=== PATIENT | male | born 1955 | race Caucasian/White ===

== ENCOUNTER 2023-07-01 12:12 | Outpatient (RCR) | payer MEDICARE, OTHER, SELFPAY | END 2023-07-01 23:59 | disposition home or self-care (01) | LOC: RPT 12:12 | PROVIDERS: ATTENDING PHYSICIAN Student in an Organized Health Care Education/Training Program; FAMILY PHYSICIAN Physician Assistant Medical | DX: I69.320 Aphasia following cerebral infarction (principal); I69.898 Other sequelae of other cerebrovascular disease; R26.89 Other abnormalities of gait and mobility; Z73.6 Limitation of activities due to disability | CPT/HCPCS: 92507; 97110; 97140 ==

== ENCOUNTER 2023-09-26 09:57 | Emergency (ER) | payer MEDICARE, OTHER, SELFPAY ==
[2023-09-26 10:05] VITALS: BP 155/85
--- NOTE | 2023-09-26 10:27 | ED.GENMED ---
History of Present Illness
General
Chief Complaint: Musculo-Skeletal Complaint
Time Seen by Provider: 09/26/23 10:16
Travel History
Have you had any contact with someone who has COVID-19?: No
Do you have any symptoms of coronavirus? Fever > 100 degrees, chills, cough, shortness of breath, sore throat, loss of taste or smell, muscle aches, or headache?: No
History of Present Illness
History of Present Illness:
67-year-old male with history of CVA and resultant mild right weakness and severe expressive aphasia presents for evaluation of right scapular pain rating down the right arm. He states the pain has been ongoing for the past 3 months. Of note he
underwent MRI and subsequent right shoulder surgery in April 2023 and he states the pain feels similar. Pain is nonpleuritic and is not worsened by head or neck movement. No fevers or chills.
Past History
Past History
ED Past Medical History: Other (stroke 2_2022)
ED Past Surgical History: Urological
Social History
Tobacco: Non-smoker
Alcohol: None
Drug: None
Family History
Family History: Unable to obtain
Review of Systems
Review of Systems
Allergies reviewed?: Yes
All Other Systems: ROS reviewed and negative except as documented in HPI and ROS
Phy Exam
Physical Exam
Physical Exam:
GEN: Well appearing, NAD, WDWN
HEENT: Oral mucosa moist, no scleral icterus
Cardiac: Regular rate and rhythm, no murmurs
Lung: No respiratory distress, no tachypnea, lungs clear to auscultation bilaterally
MSK: No gross deformity or injuries. There is minimal reproducible tenderness along the right trapezius with no gross abnormalities. Right shoulder range of motion is normal, strength is somewhat diminished on the right but this is known from his
prior stroke
Skin: Good color, no pallor or jaundice, no rashes
Neuro: AO x3, moves all extremities freely
Psych: Calm, cooperative
Course
Orders/Labs/Results
Orders:
Orders
09/26/23 10:27
Electrocardiogram (*1) Urgent
Reason for Study: Other
Other Reason for Exam: scapular pain
EKG- Treatment ONCE
CR Chest - 2 Views Urgent
Comment:
Reason For Exam: R scapular pain
09/26/23 10:31
Complete Blood Count/With Diff Urgent
Comprehensive Metabolic Panel Urgent
Troponin I Urgent
Abnormal Lab Results
09/26/23
10:31
RBC 4.62 L 10^6/uL
(4.70-6.10)
MCH 31.2 H pg
(27.0-31.0)
Glucose 132 H mg/dl
(70-99)
09/26/23 10:31
09/26/23 10:31
Vital Signs
Initial and Last Documented VS:
Initial Vital Signs
Temp Pulse Resp BP Pulse Ox
98 F 73 18 155/85 98
09/26/23 10:05 09/26/23 10:05 09/26/23 10:05 09/26/23 10:05 09/26/23 10:05
Last Documented Vital Signs
Temp Pulse Resp BP Pulse Ox
98 F 73 18 155/85 98
09/26/23 10:05 09/26/23 10:05 09/26/23 10:05 09/26/23 10:05 09/26/23 10:05
MDM/Problems Addressed
MDM/Problems Addressed:
Initial EKG independently interpreted by me shows a sinus bradycardia with a first-degree AV block, some patient motion artifact limits interpretation of the precordial leads however otherwise no acute ST changes concerning for ischemia. Patient's
workup was initially pursued due to the vagueness of his pain however given the duration over the course of 3 months coupled with reassuring workup this is likely musculoskeletal etiology. Would favor cervical radiculopathy versus recurrent
shoulder arthropathy. Given his prior stroke would avoid use of NSAIDs, will start the patient on muscle relaxants and gabapentin for pain relief. Recommend outpatient orthopedic evaluation
*Critical Care Note
Total Time (30-74mins, 75-104mins- exclusive of procedures): Not Applicable
ED Attending Note
-
Portions of this chart may have been created with voice recognition software.� Occasional wrong word or��sound alike� substitutions may have occurred due to the inherent limitations of voice recognition software.
Discharge Plan
Departure
Patient Disposition: Home (Routine Discharge)
Date of Disposition: 09/26/23
Time of Disposition: 11:20
Patient with high blood pressure during this ER visit?: No
Discharge Problem:
Cervical radiculopathy
Instructions: Radiculopathy (DC)
Prescriptions:
New
gabapentin 300 mg capsule
300 mg PO Q8H PRN (Reason: pain) Qty: 30 0RF
methocarbamol 750 mg tablet
750 mg PO HS Qty: 10 0RF
No Action
acetaminophen 325 mg Tablet
650 mg PO Q4HPRN PRN (Reason: SHEPHERD, mild pain, or temp >100.4F) Qty: 0 0RF
amlodipine 5 mg Tablet
5 mg PO DAILY Qty: 0 0RF
aspirin 81 mg Tablet,Delayed Release (Dr/Ec)
81 mg PO DAILY Qty: 0 0RF
atorvastatin 40 mg Tablet
40 mg PO QPM
Metamucil Packet
1 packet PO Q48H
magnesium hydroxide [Milk of Magnesia] 400 mg/5 mL Suspension
15 ml PO DAILY PRN (Reason: CONSTIPATION)
tamsulosin 0.4 mg capsule
0.4 mg PO QPM
Referrals:
Manuel Martinez PA-C [Family Provider] -
Brett Velazquez MD [Active] -
Interventions
Interventions:
*Risk Screen - Suicide Last Done: 09/26/23 10:44
*General Assessment Last Done: 09/26/23 10:44
*Neglect/Abuse Screening Last Done: 09/26/23 10:44
ED- Fall Risk Assessment Last Done: 09/26/23 10:44
*Nursing Disposition Last Done: 09/26/23 11:47
ED-Musculoskeletal Assessment Last Done: 09/26/23 10:44
Discharge Date and Time
Discharge Date/Time: 09/26/23 11:49
[2023-09-26 10:39] LABS: % Basophils 0.7 % (0-2); % Eosinophils 2.2 % (0-6); % Immature Granulocytes 0.3 % (0-0.5); % Monocytes 8.6 % (1.7-9.3); % Neutrophils 66.2 % (42.2-75.2); Absolute Basophils 0.1 10^3/uL (0-0.2); Absolute Eosinophils 0.2 10^3/uL (0-0.7); Absolute Lymphocytes 1.6 10^3/uL (1.2-3.4); Absolute Monocytes 0.6 10^3/uL (0.1-0.6); Absolute Neutrophils 4.8 10^3/uL (1.4-6.5); Hematocrit 41.1 % (39.0-52.0); Hemoglobin 14.4 g/dL (13.0-18.0); Mean Corpuscular Hgb 31.2 pg (27.0-31.0); Mean Platelet Volume 9.4 fL (7.4-10.4); Nucleated Red Blood Cells % 0 % (-); Platelet Count 214 10^3/uL (130-400); Red Blood Cell Count 4.62 10^6/uL (4.70-6.10); Red Cell Dist. Width 12.3 % (11.5-14.5); White Blood Cell Count 7.2 10^3/uL (4.8-10.8)
[2023-09-26 10:52] LABS: ALT (SGPT) 26 U/L (0-50); AST (SGOT) 22 U/L (17-59); Albumin 4.3 g/dl (3.5-5.0); Alkaline Phosphatase 82 U/L (38-126); Blood Urea Nitrogen 18 mg/dl (9-20); Calcium 9.4 mg/dl (8.4-10.2); Carbon Dioxide 30 mmol/L (22-30); Chloride 107 mmol/L (98-107); Glucose 132 mg/dl (70-99); Potassium 3.9 mmol/L (3.5-5.1); Sodium 139 mmol/L (135-145); Total Bilirubin 0.7 mg/dl (0.2-1.3); Total Protein 7.3 g/dl (6.3-8.2); eGFR > 60.00
[2023-09-26 11:04] LABS: Troponin I < 0.012 ng/ml
== END 2023-09-26 11:49 | disposition home or self-care (01) ==
LOC: EMR 09:57
PROVIDERS: Physician Assistant; EMERGENCY PHYSICIAN Emergency Medicine; FAMILY PHYSICIAN Physician Assistant Medical
DX: M54.12 Radiculopathy, cervical region (principal); I69.351 Hemiplegia and hemiparesis following cerebral infarction affecting right dominant side
CPT/HCPCS: 99285; 71046; 80053; 84484; 85025; 93005

== ENCOUNTER 2024-02-27 12:02 | Emergency (ER) | payer MEDICARE, OTHER, SELFPAY ==
[2024-02-27 12:11] VITALS: BP 146/77
--- NOTE | 2024-02-27 13:18 | ED.GENMED ---
History of Present Illness
General
Chief Complaint: Male Genito-Urinary Symptoms
Source: patient and customer care voice consultant
Time Seen by Provider: 02/27/24 13:07
History of Present Illness
History of Present Illness:
68yoM with a history of prior CVA with baseline aphasia and R hemiparesis, coronary artery disease, hypertension, hyperlipidemia presenting with his caregiver for evaluation of urinary frequency. Patient's caregiver reports that he has been having
urinary frequency for several months. He was previously seen by urology, Dr. Drake, earlier this year for these symptoms. A cystoscopy was recommended which patient ultimately refused. Patient reported to his caregiver today that he was having
scrotal pain. Caregiver is unsure when this started as patient recently returned from a trip a few days ago. No fevers, vomiting, abdominal pain, flank pain.
Past History
Past History
ED Past Medical History: Other (stroke 2_2022)
ED Past Surgical History: Urological
Social History
Tobacco: Non-smoker
Alcohol: None
Drug: None
Family History
Family History: Unable to obtain
Phy Exam
General Physical Exam
General Presentation: well appearing and no apparent distress
General age: appears stated age
General Skin: warm and dry
General Habitus: normal
Gastrointestinal Exam
Gastrointestinal Exam: non tender, soft, non distended and no cva tenderness
Genitourinary Exam Male
Exam Male: circumcised, no CVAT, normal external genitalia and other (+Bilateral testicular tenderness. No edema or skin changes noted. )
Neurological Exam
Neurological Exam: expressive aphasia
Course
Orders/Labs/Results
Orders:
Orders
02/27/24 13:18
US Scrotum Urgent
Comment:
Reason For Exam: testicular pain
02/27/24 13:38
Urinalysis Reflex To Culture Urgent
Date Specimen was Collected: 02/27/24
Time Specimen was Collected: 13:24
Urine Microscopic Reflex Cult Urgent
Urine Culture Urgent
LUCIUS Source: U
Specimen Description:
Date Specimen was Collected: 02/27/24
Time Specimen was Collected: 13:24
Comment: Add on by Colette Sevilla
02/27/24 14:38
Complete Blood Count/With Diff Urgent
Comprehensive Metabolic Panel Urgent
02/27/24 15:46
Add On - Microbiology Urgent
Tests Added?: Urine culture
Abnormal Lab Results
02/27/24 02/27/24
13:38 14:38
Absolute Monos (auto) 0.9 H 10^3/uL
(0.1-0.6)
Chloride 109 H mmol/L
(98-107)
Leukocyte Esterase Rfl Trace A
(Negative)
Urine RBC 3-6 A /HPF
(0-2)
Urine Bacteria (Reflex) Few A
(Negative)
02/27/24 14:38
02/27/24 14:38
Vital Signs
Initial and Last Documented VS:
Initial Vital Signs
Temp Pulse Resp BP Pulse Ox
98.3 F 70 16 146/77 98
02/27/24 12:11 02/27/24 12:11 02/27/24 12:11 02/27/24 12:11 02/27/24 12:11
Last Documented Vital Signs
Temp Pulse Resp BP Pulse Ox
98.3 F 70 16 146/77 98
02/27/24 12:11 02/27/24 12:11 02/27/24 12:11 02/27/24 12:11 02/27/24 12:11
MDM/Problems Addressed
Differential Diagnosis Includes:
68yoM here with urinary frequency x several months and scrotal pain. Hx of CVA with baseline expressive aphasia. Caregiver is assisting with history. He is afebrile and hemodynamically stable. He is well-appearing no acute distress. There is
bilateral scrotal tenderness on exam without edema or skin changes. Differential diagnosis includes but is not limited to: UTI, epididymitis, orchitis, testicular torsion, hernia
Initial ED plan: Check CBC, CMP, UA, and scrotal ultrasound.
*Critical Care Note
Total Time (30-74mins, 75-104mins- exclusive of procedures): Not Applicable
Update Note
Update Note:
Labs unremarkable including normal white count and renal function. UA reveals 3-6 RBCs. There is a few bacteria with only 3-5 WBCs. No overt signs of infection present. Urine culture added for completeness. Ultrasound shows no evidence of
torsion, orchitis, or epididymitis. Unclear etiology of symptoms. Patient was advised to follow-up with his urologist. ED return precautions discussed. Recommendations were discussed with caregiver and he was discharged in stable condition.
ED Attending Note
-
Portions of this chart may have been created with voice recognition software.� Occasional wrong word or��sound alike� substitutions may have occurred due to the inherent limitations of voice recognition software.
Discharge Plan
Departure
Patient Disposition: Home (Routine Discharge)
Date of Disposition: 02/27/24
Time of Disposition: 16:34
Patient with high blood pressure during this ER visit?: No
Discharge Problem:
Testicular pain, Urinary frequency
Instructions: How to Perform a Testicular Self-Exam
Prescriptions:
No Action
acetaminophen 325 mg Tablet
650 mg PO Q4HPRN PRN (Reason: SHEPHERD, mild pain, or temp >100.4F) Qty: 0 0RF
amlodipine 5 mg Tablet
5 mg PO DAILY Qty: 0 0RF
aspirin 81 mg Tablet,Delayed Release (Dr/Ec)
81 mg PO DAILY Qty: 0 0RF
atorvastatin 40 mg Tablet
40 mg PO QPM
Metamucil Packet
1 packet PO Q48H
magnesium hydroxide [Milk of Magnesia] 400 mg/5 mL Suspension
15 ml PO DAILY PRN (Reason: CONSTIPATION)
tamsulosin 0.4 mg capsule
0.4 mg PO QPM
gabapentin 300 mg capsule
300 mg PO Q8H PRN (Reason: pain) Qty: 30 0RF
methocarbamol 750 mg tablet
750 mg PO HS Qty: 10 0RF
Referrals:
Evens Garner MD [Active] -
UNKNOWN,NO INTERVIEW [Family Provider] -
Activity Restrictions/Additional Instructions:
Please call tomorrow to schedule a follow-up with your urologist. Return to the ER with any new or worsening symptoms.
Interventions
Interventions:
*Risk Screen - Suicide Last Done: 02/27/24 13:17
*General Assessment Last Done: 02/27/24 13:17
*Neglect/Abuse Screening Last Done: 02/27/24 13:17
ED- Fall Risk Assessment Last Done: 02/27/24 18:03
*ED COVID-19 Vaccine History Last Done: 02/27/24 13:17
*Nursing Disposition Last Done: 02/27/24 18:03
ED-Male Genitourinary Assessment Last Done: 02/27/24 13:17
Discharge Date and Time
Discharge Date/Time: 02/27/24 18:04
Print Language: ROMANSH
[2024-02-27 14:06] LABS: Urine Albumin Negative (Neg - Trace); Urine Bilirubin Negative (Negative); Urine Character Very Cloudy (Clear); Urine Color Yellow; Urine Glucose Negative (Negative); Urine Ketone Negative (Negative); Urine Leukocyte Trace (Negative); Urine Nitrite Negative (Negative); Urine Occult Blood Negative (Negative); Urine Urobilinogen Negative (Neg - 1+); Urine pH 6.5 (5.0-9.0)
[2024-02-27 14:26] LABS: Urine Amorphous Seen; Urine Calcium Oxalate Crystals Present
[2024-02-27 14:27] LABS: Urine Bacteria Few (Negative)
[2024-02-27 14:55] LABS: % Basophils 0.5 % (0-2); % Eosinophils 1.1 % (0-6); % Immature Granulocytes 0.3 % (0-0.5); % Lymphocytes 21.4 % (20.5-51.1); % Monocytes 9.3 % (1.7-9.3); % Neutrophils 67.4 % (42.2-75.2); Absolute Basophils 0.1 10^3/uL (0-0.2); Absolute Eosinophils 0.1 10^3/uL (0-0.7); Absolute Lymphocytes 2.1 10^3/uL (1.2-3.4); Absolute Monocytes 0.9 10^3/uL (0.1-0.6); Absolute Neutrophils 6.4 10^3/uL (1.4-6.5); Hematocrit 41.1 % (39.0-52.0); Hemoglobin 14.5 g/dL (13.0-18.0); Mean Corp Hgb Conc. 35.3 g/dL (33.0-37.0); Mean Corpuscular Hgb 30.5 pg (27.0-31.0); Mean Corpuscular Volume 86.3 fL (80.0-94.0); Mean Platelet Volume 9.3 fL (7.4-10.4); Nucleated Red Blood Cells % 0 % (-); Platelet Count 232 10^3/uL (130-400); Red Blood Cell Count 4.76 10^6/uL (4.70-6.10); Red Cell Dist. Width 12.8 % (11.5-14.5); White Blood Cell Count 9.6 10^3/uL (4.8-10.8)
[2024-02-27 15:21] LABS: ALT (SGPT) 18 U/L (0-50); AST (SGOT) 23 U/L (17-59); Albumin 4.2 g/dl (3.5-5.0); Alkaline Phosphatase 92 U/L (38-126); Blood Urea Nitrogen 13 mg/dl (9-20); Calcium 9.5 mg/dl (8.4-10.2); Carbon Dioxide 24 mmol/L (22-30); Chloride 109 mmol/L (98-107); Glucose 91 mg/dl (70-99); Potassium 4.3 mmol/L (3.5-5.1); Sodium 140 mmol/L (135-145); Total Bilirubin 0.6 mg/dl (0.2-1.3); eGFR > 60.00
== END 2024-02-27 18:04 | disposition home or self-care (01) ==
LOC: EMR 12:02
PROVIDERS: Physician Assistant; EMERGENCY PHYSICIAN Student in an Organized Health Care Education/Training Program
DX: N50.812 Left testicular pain (principal); N50.811 Right testicular pain; R35.0 Frequency of micturition; I10 Essential (primary) hypertension; E78.5 Hyperlipidemia, unspecified; I25.10 Atherosclerotic heart disease of native coronary artery without angina pectoris
CPT/HCPCS: 99284; 51798; 76870; 80053; 81003; 81015; 85025; 87086; 93976

== ENCOUNTER → 2024-05-13 11:03 | Outpatient (REF) | payer MEDICARE, OTHER, SELFPAY | LOC: RAD 11:03 | PROVIDERS: ATTENDING PHYSICIAN Internal Medicine Cardiovascular Disease; FAMILY PHYSICIAN Family Medicine | DX: I63.412 Cerebral infarction due to embolism of left middle cerebral artery (principal) | CPT/HCPCS: 93880 ==

== ENCOUNTER 2024-06-16 08:08 | Emergency (ER) | payer MEDICARE, OTHER, SELFPAY ==
[2024-06-16 08:13] VITALS: BP 147/56
--- NOTE | 2024-06-16 08:41 | ED.GENMED ---
History of Present Illness
General
Chief Complaint: Male Genito-Urinary Symptoms
Source: patient
Exam Limitations: none
Time Seen by Provider: 06/16/24 08:28
History of Present Illness
History of Present Illness:
68-year-old male with history of stroke leaving with expressive aphasia presents with friend and caregiver who states the patient has been having discomfort with urinating over the past 2 to 3 days. Patient denies abdominal pain. Of note he is
currently being treated for a parasite in his abdomen with mebendazole. Patient denies any blood in the stool or the urine. He is urinating more frequently. Patient is a difficult historian secondary to the aphasia. No fever reported.
Past History
Past History
ED Past Medical History: Other (stroke 2_2022)
ED Past Surgical History: Urological
Social History
Tobacco: Non-smoker
Alcohol: None
Drug: None
Family History
Family History: Unable to obtain
Phy Exam
Physical Exam
Physical Exam:
General: Well-developed male no acute respiratory distress
HEENT: Normocephalic atraumatic
Heart: Regular rate and rhythm no murmurs
Lungs: Clear no wheeze
Abdomen soft nontender nondistended no guarding rebound normal bowel sounds exam: Circumcised male. Tenderness noted about the right testicle. Some thickening noted on the right side of the scrotum. Cremasteric reflex intact no urethral
discharge
Extremities: No cyanosis
Course
Orders/Labs/Results
Orders:
Orders
06/16/24 08:40
US Scrotum Urgent
Comment:
Reason For Exam: right sided pain
06/16/24 09:12
Complete Blood Count/With Diff Urgent
Comprehensive Metabolic Panel Urgent
Urinalysis Reflex To Culture Urgent
Date Specimen was Collected: 06/16/24
Time Specimen was Collected: 09:01
Chlamydia/GC by PCR Urgent
LUCIUS Source: U
Specimen Description:
Date Specimen was Collected: 06/16/24
Time Specimen was Collected: 09:01
06/16/24 10:24
Add On - Microbiology Urgent
Tests Added?: urine gonorrhea/chlamydia tests
06/16/24 09:12
06/16/24 09:12
Vital Signs
Initial and Last Documented VS:
Initial Vital Signs
Temp Pulse Resp BP Pulse Ox
97.6 F 48 20 147/56 100
06/16/24 08:13 06/16/24 08:13 06/16/24 08:13 06/16/24 08:13 06/16/24 08:13
Last Documented Vital Signs
Temp Pulse Resp BP Pulse Ox
97.6 F 48 20 147/56 100
06/16/24 08:13 06/16/24 08:13 06/16/24 08:13 06/16/24 08:13 06/16/24 08:13
MDM/Problems Addressed
Differential Diagnosis Includes:
Dysuria with testicular pain. Consider UTI versus urethritis versus epididymitis versus hydrocele
Urinalysis pending ultrasound scrotum pending. Basic labs pending
*Critical Care Note
Total Time (30-74mins, 75-104mins- exclusive of procedures): Not Applicable
Update Note
Update Note:
US suggestive of orchitis of right testicle. Labs ok. Nontoxic. Discussed with urology. Will start doxycycline and have patient follow up with urology. Stable for d/c.
ED Attending Note
-
Portions of this chart may have been created with voice recognition software.� Occasional wrong word or��sound alike� substitutions may have occurred due to the inherent limitations of voice recognition software.
Discharge Plan
Departure
Patient Disposition: Home (Routine Discharge)
Date of Disposition: 06/16/24
Time of Disposition: 10:58
Patient with high blood pressure during this ER visit?: No
Discharge Problem:
Orchitis
Instructions: Epididymitis and orchitis
Prescriptions:
New
doxycycline hyclate 100 mg tablet
100 mg PO BID Qty: 20 0RF
No Action
acetaminophen 325 mg Tablet
650 mg PO Q4HPRN PRN (Reason: SHEPHERD, mild pain, or temp >100.4F) Qty: 0 0RF
amlodipine 5 mg Tablet
5 mg PO DAILY Qty: 0 0RF
aspirin 81 mg Tablet,Delayed Release (Dr/Ec)
81 mg PO DAILY Qty: 0 0RF
atorvastatin 40 mg Tablet
40 mg PO QPM
Metamucil Packet
1 packet PO Q48H
magnesium hydroxide [Milk of Magnesia] 400 mg/5 mL Suspension
15 ml PO DAILY PRN (Reason: CONSTIPATION)
tamsulosin 0.4 mg capsule
0.4 mg PO QPM
gabapentin 300 mg capsule
300 mg PO Q8H PRN (Reason: pain) Qty: 30 0RF
methocarbamol 750 mg tablet
750 mg PO HS Qty: 10 0RF
Referrals:
Keyon Andersen, DO [Family Provider] -
Activity Restrictions/Additional Instructions:
Take antibiotics as directed. Follow-up with urology. Return if needed otherwise.
Interventions
Interventions:
*Risk Screen - Suicide Last Done: 06/16/24 08:13
*General Assessment Last Done: 06/16/24 08:13
*Neglect/Abuse Screening Last Done: 06/16/24 08:13
*ED COVID-19 Vaccine History Last Done: 06/16/24 09:31
Discharge Date and Time
Print Language: VIETNAMESE
[2024-06-16 09:00] VITALS: BMI 23.1
[2024-06-16 09:24] LABS: Urine Albumin Negative (Neg - Trace); Urine Bilirubin Negative (Negative); Urine Character Clear (Clear); Urine Color Yellow; Urine Glucose Negative (Negative); Urine Ketone Negative (Negative); Urine Leukocyte Negative (Negative); Urine Nitrite Negative (Negative); Urine Occult Blood Negative (Negative); Urine Specific Gravity 1.015 (<1.030); Urine Urobilinogen Negative (Neg - 1+)
[2024-06-16 09:25] LABS: % Basophils 0.5 % (0-2); % Eosinophils 2.8 % (0-6); % Immature Granulocytes 0.4 % (0-0.5); % Lymphocytes 23.3 % (20.5-51.1); % Monocytes 7.6 % (1.7-9.3); % Neutrophils 65.4 % (42.2-75.2); Absolute Eosinophils 0.2 10^3/uL (0-0.7); Absolute Lymphocytes 1.8 10^3/uL (1.2-3.4); Absolute Monocytes 0.6 10^3/uL (0.1-0.6); Hematocrit 44.3 % (39.0-52.0); Hemoglobin 14.6 g/dL (13.0-18.0); Mean Corpuscular Hgb 30.4 pg (27.0-31.0); Mean Corpuscular Volume 92.1 fL (80.0-94.0); Mean Platelet Volume 9.4 fL (7.4-10.4); Nucleated Red Blood Cells % 0 % (-); Platelet Count 194 10^3/uL (130-400); Red Blood Cell Count 4.81 10^6/uL (4.70-6.10); Red Cell Dist. Width 12.9 % (11.5-14.5); White Blood Cell Count 7.6 10^3/uL (4.8-10.8)
[2024-06-16 09:39] LABS: ALT (SGPT) 29 U/L (0-50); AST (SGOT) 21 U/L (17-59); Albumin 4.4 g/dl (3.5-5.0); Alkaline Phosphatase 61 U/L (38-126); Blood Urea Nitrogen 13 mg/dl (9-20); Calcium 9.3 mg/dl (8.4-10.2); Carbon Dioxide 29 mmol/L (22-30); Chloride 105 mmol/L (98-107); Estimated Creatinine Clearance 90 ml/min; Glucose 97 mg/dl (70-99); Potassium 4.2 mmol/L (3.5-5.1); Sodium 145 mmol/L (135-145); Total Bilirubin 0.6 mg/dl (0.2-1.3); Total Protein 7.3 g/dl (6.3-8.2); eGFR > 60.00
[2024-06-16 11:00] VITALS: BP 124/60
== END 2024-06-16 11:16 | disposition home or self-care (01) ==
LOC: EMR 08:08
PROVIDERS: Physician Assistant; EMERGENCY PHYSICIAN Emergency Medicine; FAMILY PHYSICIAN Family Medicine
DX: N45.2 Orchitis (principal); I69.320 Aphasia following cerebral infarction; Z11.8 Encounter for screening for other infectious and parasitic diseases
CPT/HCPCS: 99284; 76870; 80053; 81003; 85025; 87491; 87591; 93976

== ENCOUNTER 2024-07-21 10:36 | Emergency (ER) | payer MEDICARE, OTHER, SELFPAY ==
[2024-07-21 11:02] VITALS: BP 138/64
--- NOTE | 2024-07-21 12:22 | ED.GENMED ---
History of Present Illness
General
Chief Complaint: Musculo-Skeletal Complaint
Source: patient
Time Seen by Provider: 07/21/24 11:39
History of Present Illness
History of Present Illness:
68-year-old male with past medical history of CVA with longstanding aphasia, CAD, hypertension, hyperlipidemia presenting to the emergency department for evaluation of atraumatic left knee pain (triage complaint stated right knee pain) along the
medial aspect of the left knee for the last 5 days. Patient and caregiver in the room state there was no reported injury, fall, fevers or infectious symptoms. They have not attempted any medications for pain relief since initiation of the pain.
Patient denies any history of similar. No other concerns or extremity related complaints at this time. Patient does describe the pain to be worse when ambulating but still able to do so, worse with palpation, dull aching sensation. No calf
tenderness or edema.
Past History
Past History
ED Past Medical History: CAD, CVA, HTN, Hypercholesterolemia and Other (stroke 2_2022)
ED Past Surgical History: Urological and Other
Social History
Tobacco: Non-smoker
Alcohol: None
Drug: None
Personal: Single
Living: with family
Family History
Family History: Unable to obtain
Review of Systems
Review of Systems
All Other Systems: ROS reviewed and negative except as documented in HPI and ROS
Phy Exam
Physical Exam
Physical Exam:
GENERAL: Alert , in no apparent distress
EYE: conjunctiva clear
Head: Normocephalic atraumatic
NECK: Supple,
ENT: mmm.
LUNGS: no acute respiratory distress
NEUROLOGICAL: Alert and oriented
SKIN: Warm and dry, skin intact.
MUSCULOSKELETAL: Left knee: There is mild soft tissue swelling medially with tenderness directly over this area and the patellofemoral joint line. Patient allows for full range of motion with some discomfort. No overlying erythema. No calf
tenderness or edema. Extremity is otherwise warm and well-perfused.
PSYCH: Normal and appropriate interaction.
Scores
Heart Failure Risk
Heart Failure Risk Score: Not Applicable
Heart Score for Chest Pain Patients
STEMI patient?: Not applicable
Withdrawal Assessment of Alcohol
Withdrawal Assessment Completed?: Not applicable
Course
Orders/Labs/Results
Orders:
Orders
07/21/24 11:04
Knee, Left 4 or More Views [CR Knee - Left 4 Or More View*] Urgent
Comment:
Reason For Exam: pain, swelling
07/21/24 12:22
Ibuprofen [Motrin] 600 mg PO NOW STA
Vital Signs
Initial and Last Documented VS:
Initial Vital Signs
Temp Pulse Resp BP Pulse Ox
98.3 F 56 18 138/64 99
07/21/24 11:02 07/21/24 11:02 07/21/24 11:02 07/21/24 11:02 07/21/24 11:02
Last Documented Vital Signs
Temp Pulse Resp BP Pulse Ox
98.3 F 56 18 138/64 99
07/21/24 11:02 07/21/24 11:02 07/21/24 11:02 07/21/24 11:02 07/21/24 11:02
MDM/Problems Addressed
Differential Diagnosis Includes:
Arthritis, ligamentous or meniscal injury, gout, infection considered however given patient has range of motion, no overlying erythema and no fevers I have minimal to no suspicion for this.
MDM/Problems Addressed:
68-year-old male presenting to the ER for evaluation of atraumatic left knee pain x 5 days. Has not attempted any medications for relief prior to arrival to the ER today. No fevers or infectious symptoms. No history of pain or trauma previously.
X-ray ordered from triage does not show any acute abnormalities. Will treat with a 5-day course of naproxen. Information for orthopedics provided. Discussed return precautions with patient and caregiver. Able for discharge home.
*Radiology
Radiology exam reviewed: preliminary read by ED provider (No acute abnormalities)
*Pulse Oximetry
Patient hypoxic: no
*Critical Care Note
Total Time (30-74mins, 75-104mins- exclusive of procedures): Not Applicable
ED Attending Note
-
Portions of this chart may have been created with voice recognition software.� Occasional wrong word or��sound alike� substitutions may have occurred due to the inherent limitations of voice recognition software.
Discharge Plan
Departure
Patient Disposition: Home (Routine Discharge)
Date of Disposition: 07/21/24
Time of Disposition: 12:22
Patient with high blood pressure during this ER visit?: No
Discharge Problem:
Knee pain, left
Instructions: Knee Pain (DC)
Prescriptions:
New
naproxen 500 mg tablet
500 mg PO BID 5 Days Qty: 10 0RF
No Action
acetaminophen 325 mg Tablet
650 mg PO Q4HPRN PRN (Reason: SHEPHERD, mild pain, or temp >100.4F) Qty: 0 0RF
amlodipine 5 mg Tablet
5 mg PO DAILY Qty: 0 0RF
aspirin 81 mg Tablet,Delayed Release (Dr/Ec)
81 mg PO DAILY Qty: 0 0RF
atorvastatin 40 mg Tablet
40 mg PO QPM
Metamucil Packet
1 packet PO Q48H
magnesium hydroxide [Milk of Magnesia] 400 mg/5 mL Suspension
15 ml PO DAILY PRN (Reason: CONSTIPATION)
tamsulosin 0.4 mg capsule
0.4 mg PO QPM
gabapentin 300 mg capsule
300 mg PO Q8H PRN (Reason: pain) Qty: 30 0RF
methocarbamol 750 mg tablet
750 mg PO HS Qty: 10 0RF
doxycycline hyclate 100 mg tablet
100 mg PO BID Qty: 20 0RF
Referrals:
Keyon Andersen DO [Family Provider] -
Samson Chavira MD [Active] - ([facility])
Eddie Cortez MD [Active] - ([facility])
Interventions
Interventions:
*Risk Screen - Suicide Last Done: 07/21/24 11:05
*General Assessment Last Done: 07/21/24 11:05
*ED COVID-19 Vaccine History Last Done: 07/21/24 11:05
Discharge Date and Time
Print Language: TUNISIAN
[2024-07-21] MEDS: MOTRIN 600 MG PO (12:36)
== END 2024-07-21 12:57 | disposition home or self-care (01) ==
LOC: EMR 10:36
PROVIDERS: EMERGENCY PHYSICIAN Emergency Medicine; FAMILY PHYSICIAN Family Medicine
DX: M25.562 Pain in left knee (principal); I25.10 Atherosclerotic heart disease of native coronary artery without angina pectoris; I10 Essential (primary) hypertension; E78.00 Pure hypercholesterolemia, unspecified; I69.920 Aphasia following unspecified cerebrovascular disease
CPT/HCPCS: 99283; 73564

== ENCOUNTER → 2024-08-31 12:52 | Outpatient (REF) | payer MEDICARE, OTHER, SELFPAY | LOC: EMG 12:52 | PROVIDERS: ATTENDING PHYSICIAN Orthopaedic Surgery Hand Surgery; FAMILY PHYSICIAN Family Medicine | DX: M25.511 Pain in right shoulder (principal); R20.0 Anesthesia of skin; R20.2 Paresthesia of skin; G56.01 Carpal tunnel syndrome, right upper limb | CPT/HCPCS: 95886; 95909 ==

== ENCOUNTER → 2024-09-05 12:47 | Outpatient (REF) | payer MEDICARE, SELFPAY | LOC: PAVMRI 12:47 | PROVIDERS: ATTENDING PHYSICIAN Physician Assistant; FAMILY PHYSICIAN Family Medicine; OTHER PHYSICIAN Physical Medicine & Rehabilitation | DX: M54.12 Radiculopathy, cervical region (principal) | CPT/HCPCS: 72141 ==

== ENCOUNTER → 2025-03-13 09:36 | Outpatient (REF) | payer MEDICARE, SELFPAY | LOC: RAD 09:36 | PROVIDERS: ATTENDING PHYSICIAN Specialist; FAMILY PHYSICIAN Family Medicine | DX: N23 Unspecified renal colic (principal) | CPT/HCPCS: 74176 ==